=== PATIENT | male | born 1945 | race Caucasian/White ===

== ENCOUNTER 2016-05-31 07:09 | Outpatient (RCR) | payer OTHER, MEDICARE ==
[~2016-05-31] VITALS: Ht 30.5 cm; Wt 0.5 kg
[2016-05-31] MEDS ORDERED: Succinylcholine 20mg/ml 10ml vial ONE (07:10)
[2016-05-31] MEDS ORDERED: Methohexital Sodium Syr 100mg/10ml IVP ONE (07:10)
[2016-05-31] MEDS ORDERED: NS 550ML IV ONE (07:10)
[2016-05-31] MEDS ORDERED: Ketorolac 60mg Inj ONE (07:10)
[2016-05-31] MEDS ORDERED: Midazolam 2mg/2ml Inj ONE (07:10)
== END 2016-06-06 | disposition home or self-care (01) ==
LOC: ECT 07:09
DX: F31.4 Bipolar disorder, current episode depressed, severe, without psychotic features (principal); F19.20 Other psychoactive substance dependence, uncomplicated; G47.33 Obstructive sleep apnea (adult) (pediatric); M85.80 Other specified disorders of bone density and structure, unspecified site; Z85.46 Personal history of malignant neoplasm of prostate
CPT/HCPCS: 90870; J0330; J2250; J7040

== ENCOUNTER 2016-06-30 07:19 | Outpatient (RCR) | payer MEDICARE, OTHER ==
[~2016-06-30] VITALS: Ht 175.3 cm; Wt 73.9 kg
[2016-06-30] MEDS ORDERED: NS 550ML IV ONE (07:20)
[2016-06-30] MEDS ORDERED: Ketorolac 30mg Inj ONE (07:20)
[2016-06-30] MEDS ORDERED: Succinylcholine 20mg/ml 10ml vial ONE (07:20)
[2016-06-30] MEDS ORDERED: Midazolam 2mg/2ml Inj ONE (07:20)
[2016-06-30] MEDS ORDERED: Methohexital Sodium Syr 100mg/10ml IVP ONE (07:20)
== END 2016-07-04 | disposition home or self-care (01) ==
LOC: ECT 07:19
DX: F31.4 Bipolar disorder, current episode depressed, severe, without psychotic features (principal)
CPT/HCPCS: 90870; J0330; J1885; J2250; J7040

== ENCOUNTER 2016-07-26 05:06 | Outpatient (RCR) | payer MEDICARE, OTHER ==
[~2016-07-26] VITALS: Ht 175.3 cm; Wt 73.9 kg
[2016-07-26] MEDS ORDERED: NS 550ML IV ONE ×2 (05:07)
[2016-07-26] MEDS ORDERED: Methohexital Sodium Syr 100mg/10ml IVP ONE (05:07)
[2016-07-26] MEDS ORDERED: Ketorolac 60mg Inj ONE (05:07)
[2016-07-26] MEDS ORDERED: Midazolam 2mg/2ml Inj ONE (05:07)
[2016-07-26] MEDS ORDERED: Succinylcholine 20mg/ml 10ml vial ONE (05:07)
[2016-07-26] MEDS ORDERED: Atropine Sulfate 0.4mg/ml inj IVP PRN (09:06)
== END 2016-08-04 | disposition home or self-care (01) ==
LOC: ECT 05:06
DX: F31.4 Bipolar disorder, current episode depressed, severe, without psychotic features (principal)
CPT/HCPCS: 90870; J0330; J2250; J7040

== ENCOUNTER → 2019-12-12 | Outpatient (CLI) | payer MEDICARE | END | disposition home or self-care (01) | LOC: ECT 10:27 | DX: F31.81 Bipolar II disorder (principal); F10.21 Alcohol dependence, in remission; F11.21 Opioid dependence, in remission; F13.21 Sedative, hypnotic or anxiolytic dependence, in remission; E78.5 Hyperlipidemia, unspecified; G47.33 Obstructive sleep apnea (adult) (pediatric); Z85.46 Personal history of malignant neoplasm of prostate; Z90.79 Acquired absence of other genital organ(s); Z79.82 Long term (current) use of aspirin; Z79.899 Other long term (current) drug therapy; F41.9 Anxiety disorder, unspecified ==

== ENCOUNTER 2019-12-19 06:57 | Outpatient (RCR) | payer MEDICARE ==
[~2019-12-19] VITALS: Ht 175.3 cm; Wt 73.9 kg
[2019-12-19] VITALS (8 sets, daily range): BP systolic 148–169; BP diastolic 62–79
[2019-12-19] MEDS ORDERED: Methohexital Sodium Syr 100mg/10ml IVP ONE ×2 (06:58→07:00)
[2019-12-19] MEDS ORDERED: Ketorolac 30mg Inj ONE (06:58)
[2019-12-19] MEDS ORDERED: Succinylcholine 20mg/ml 10ml vial ONE ×2 (06:58→07:00)
[2019-12-19] MEDS ORDERED: NS 500ML ONE (07:00)
[2019-12-22] VITALS (7 sets, daily range): BP systolic 134–147; BP diastolic 64–68
[2019-12-22] MEDS ORDERED: Ketorolac 30mg Inj ONE (09:00)
[2019-12-22] MEDS ORDERED: Methohexital Sodium Syr 100mg/10ml IVP ONE (09:00)
[2019-12-22] MEDS ORDERED: Succinylcholine 20mg/ml 10ml vial ONE (09:00)
[2019-12-22] MEDS ORDERED: NS 500ML ONE (09:00)
[2019-12-22] MEDS ORDERED: Atropine Sulfate 0.4mg/ml inj IVP PRN (10:34)
[2019-12-24] VITALS (7 sets, daily range): BP systolic 145–172; BP diastolic 54–80
[2019-12-24] MEDS ORDERED: NS 500ML ONE (08:00)
[2019-12-24] MEDS ORDERED: Methohexital Sodium Syr 100mg/10ml IVP ONE (08:00)
[2019-12-24] MEDS ORDERED: Ketorolac 30mg Inj ONE (08:00)
[2019-12-24] MEDS ORDERED: Succinylcholine 20mg/ml 10ml vial ONE (08:00)
[2019-12-26] VITALS (7 sets, daily range): BP systolic 139–191; BP diastolic 49–89
[2019-12-29] VITALS (7 sets, daily range): BP systolic 139–161; BP diastolic 58–68
[2019-12-29] MEDS ORDERED: Ketorolac 30mg Inj ONE (09:00)
[2019-12-29] MEDS ORDERED: NS 500ML ONE (09:00)
[2019-12-29] MEDS ORDERED: Methohexital Sodium Syr 100mg/10ml IVP ONE (09:00)
[2019-12-29] MEDS ORDERED: Succinylcholine 20mg/ml 10ml vial ONE (09:00)
[2019-12-29] MEDS ORDERED: Atropine Sulfate 0.4mg/ml inj IVP PRN (09:29)
[2019-12-31] VITALS (7 sets, daily range): BP systolic 133–168; BP diastolic 55–74
[2019-12-31] MEDS ORDERED: NS 500ML ONE (07:00)
[2019-12-31] MEDS ORDERED: Methohexital Sodium Syr 100mg/10ml IVP ONE (07:00)
[2019-12-31] MEDS ORDERED: Succinylcholine 20mg/ml 10ml vial ONE (07:00)
[2019-12-31] MEDS ORDERED: Ketorolac 60mg Inj IM ONE (07:00)
[2019-12-31] MEDS ORDERED: Atropine Sulfate 0.4mg/ml inj IVP PRN (09:29)
[2020-01-02] VITALS (7 sets, daily range): BP systolic 134–178; BP diastolic 50–68
[2020-01-02] MEDS ORDERED: Succinylcholine 20mg/ml 10ml vial ONE (09:00)
[2020-01-02] MEDS ORDERED: NS 500ML ONE (09:00)
[2020-01-02] MEDS ORDERED: Ketorolac 30mg Inj ONE (09:00)
[2020-01-02] MEDS ORDERED: Methohexital Sodium Syr 100mg/10ml IVP ONE (09:00)
[2020-01-05] VITALS (7 sets, daily range): BP systolic 125–152; BP diastolic 47–68
[2020-01-05] MEDS ORDERED: NS 500ML ONE (06:00)
[2020-01-05] MEDS ORDERED: Methohexital Sodium Syr 100mg/10ml IVP ONE (06:00)
[2020-01-05] MEDS ORDERED: Ketorolac 30mg Inj ONE (06:00)
[2020-01-05] MEDS ORDERED: Succinylcholine 20mg/ml 10ml vial ONE (06:00)
[2020-01-05] MEDS ORDERED: Atropine Sulfate 0.4mg/ml inj IVP PRN (10:09)
== END 2020-01-05 | disposition home or self-care (01) ==
LOC: ECT 06:57
DX: F31.81 Bipolar II disorder (principal)
CPT/HCPCS: 90870; J0330; J1885; J7040

== ENCOUNTER 2020-01-07 10:14 | Outpatient (RCR) | payer MEDICARE ==
[2020-01-07] VITALS (7 sets, daily range): BP systolic 125–157; BP diastolic 40–99
[~2020-01-07] VITALS: Ht 175.3 cm; Wt 73.9 kg
[~2020-01-07 10:14] MED LIST: Ketorolac 30mg Inj ONE; Methohexita Syr 100mg/10ml IVP ONE; NS 500ML ONE; Succinylcholine 20mg/ml 10ml vial ONE
[2020-01-07] MEDS ORDERED: Ketorolac 30mg Inj ONE ×2 (10:15)
[2020-01-07] MEDS ORDERED: Methohexita Syr 100mg/10ml IVP ONE ×2 (10:15)
[2020-01-07] MEDS ORDERED: Succinylcholine 20mg/ml 10ml vial ONE (10:15)
[2020-01-07] MEDS ORDERED: NS 500ML ONE ×2 (10:15)
[2020-01-09] VITALS (7 sets, daily range): BP systolic 136–149; BP diastolic 50–65
[2020-01-09] MEDS ORDERED: Ketorolac 30mg Inj ONE (06:00)
[2020-01-09] MEDS ORDERED: Succinylcholine 20mg/ml 10ml vial ONE (06:00)
[2020-01-09] MEDS ORDERED: NS 500ML ONE (06:00)
[2020-01-09] MEDS ORDERED: Methohexita Syr 100mg/10ml IVP ONE (06:00)
[2020-01-14] VITALS (7 sets, daily range): BP systolic 132–148; BP diastolic 47–64
[2020-01-14] MEDS ORDERED: Succinylcholine 20mg/ml 10ml vial ONE (09:00)
[2020-01-14] MEDS ORDERED: NS 500ML ONE (09:00)
[2020-01-14] MEDS ORDERED: Ketorolac 30mg Inj ONE (09:00)
[2020-01-14] MEDS ORDERED: Methohexita Syr 100mg/10ml IVP ONE (09:00)
[2020-01-21] VITALS (7 sets, daily range): BP systolic 123–156; BP diastolic 56–86
[2020-02-02] VITALS (7 sets, daily range): BP systolic 123–152; BP diastolic 49–62
[2020-02-02] MEDS ORDERED: Succinylcholine 20mg/ml 10ml vial ONE (09:00)
[2020-02-02] MEDS ORDERED: Methohexita Syr 100mg/10ml IVP ONE (09:00)
[2020-02-02] MEDS ORDERED: Ketorolac 30mg Inj ONE (09:00)
[2020-02-02] MEDS ORDERED: NS 500ML ONE (09:00)
[2020-02-02] MEDS ORDERED: Atropine Sulfate 0.4mg/ml inj IVP PRN (10:49)
== END 2020-02-04 | disposition home or self-care (01) ==
LOC: ECT 10:14
DX: F31.81 Bipolar II disorder (principal)
CPT/HCPCS: 90870; J0330; J1885; J7040

== ENCOUNTER 2020-02-18 04:48 | Outpatient (RCR) | payer MEDICARE ==
[~2020-02-18] VITALS: Ht 175.3 cm; Wt 73.9 kg
[2020-02-18] VITALS (7 sets, daily range): BP systolic 130–154; BP diastolic 41–63
[2020-02-18] MEDS ORDERED: Methohexital Sodium Syr 100mg/10ml IVP ONE (04:49)
[2020-02-18] MEDS ORDERED: NS 500ML ONE (04:49)
[2020-02-18] MEDS ORDERED: Succinylcholine 20mg/ml 10ml vial ONE (04:49)
[2020-02-18] MEDS ORDERED: Ketorolac 30mg Inj ONE (04:49)
== END 2020-03-06 | disposition home or self-care (01) ==
LOC: ECT 04:48
DX: F31.81 Bipolar II disorder (principal)
CPT/HCPCS: 90870; J0330; J1885; J7040

== ENCOUNTER 2020-03-10 05:41 | Outpatient (RCR) | payer MEDICARE ==
[~2020-03-10] VITALS: Ht 175.3 cm; Wt 73.9 kg
[2020-03-10] VITALS (7 sets, daily range): BP systolic 126–152; BP diastolic 50–64
[2020-03-10] MEDS ORDERED: Succinylcholine 20mg/ml 10ml vial ONE (05:42)
[2020-03-10] MEDS ORDERED: NS 500ML ONE (05:42)
[2020-03-10] MEDS ORDERED: Ketorolac 30mg Inj ONE (05:42)
[2020-03-10] MEDS ORDERED: Methohexita Syr 100mg/10ml IVP ONE (05:42)
== END 2020-04-05 | disposition home or self-care (01) ==
LOC: ECT 05:41
DX: F31.81 Bipolar II disorder (principal)
CPT/HCPCS: 90870; J0330; J1885; J7040

== ENCOUNTER 2020-04-07 05:37 | Outpatient (RCR) | payer MEDICARE ==
[~2020-04-07] VITALS: Ht 175.3 cm; Wt 73.9 kg
[2020-04-07] VITALS (7 sets, daily range): BP systolic 129–143; BP diastolic 54–66
[2020-04-07] MEDS ORDERED: Methohexita Syr 100mg/10ml IVP ONE (05:38)
[2020-04-07] MEDS ORDERED: Ketorolac 30mg Inj ONE (05:38)
[2020-04-07] MEDS ORDERED: NS 500ML ONE (05:38)
[2020-04-07] MEDS ORDERED: Succinylcholine 20mg/ml 10ml vial ONE (05:38)
[2020-05-05] VITALS (7 sets, daily range): BP systolic 144–160; BP diastolic 50–81
[2020-05-05] MEDS ORDERED: Succinylcholine 20mg/ml 10ml vial ONE (09:00)
[2020-05-05] MEDS ORDERED: NS 500ML ONE (09:00)
[2020-05-05] MEDS ORDERED: Methohexita Syr 100mg/10ml IVP ONE (09:00)
[2020-05-05] MEDS ORDERED: Ketorolac 30mg Inj ONE (09:00)
== END 2020-05-06 | disposition home or self-care (01) ==
LOC: ECT 05:37
DX: F31.81 Bipolar II disorder (principal)
CPT/HCPCS: 90870; J0330; J1885; J7040

== ENCOUNTER 2020-05-28 05:32 | Outpatient (RCR) | payer MEDICARE ==
[~2020-05-28] VITALS: Ht 175.3 cm; Wt 73.9 kg
[2020-06-04] VITALS (7 sets, daily range): BP systolic 135–180; BP diastolic 53–68
[2020-06-04] MEDS ORDERED: Ketorolac 30mg Inj ONE (06:00)
[2020-06-04] MEDS ORDERED: NS 500ML ONE (06:00)
[2020-06-04] MEDS ORDERED: Succinylcholine 20mg/ml 10ml vial ONE (06:00)
[2020-06-04] MEDS ORDERED: Methohexita Syr 100mg/10ml IVP ONE (06:00)
== END 2020-06-06 | disposition home or self-care (01) ==
LOC: ECT 05:32
DX: F31.81 Bipolar II disorder (principal)
CPT/HCPCS: 90870; J0330; J1885; J7040

== ENCOUNTER 2020-06-28 06:32 | Outpatient (RCR) | payer MEDICARE ==
[~2020-06-28] VITALS: Ht 175.3 cm; Wt 73.9 kg
[2020-06-28] VITALS (7 sets, daily range): BP systolic 126–152; BP diastolic 45–63
[2020-06-28] MEDS ORDERED: NS 500ML ONE (06:33)
[2020-06-28] MEDS ORDERED: Ketorolac 30mg Inj ONE (06:33)
[2020-06-28] MEDS ORDERED: Methohexita Syr 100mg/10ml IVP ONE (06:33)
[2020-06-28] MEDS ORDERED: Succinylcholine 20mg/ml 10ml vial ONE (06:33)
== END 2020-07-04 | disposition home or self-care (01) ==
LOC: ECT 06:32
DX: F31.81 Bipolar II disorder (principal)
CPT/HCPCS: 90870; J0330; J1885; J7040